=== PATIENT | female | born 1980 | race Caucasian/White ===

== ENCOUNTER 2018-12-03 13:07 | Emergency (ER) | payer BC ==
[2018-12-03] MEDS ORDERED: Diphtheria,Pertussis(Acell),Tetanus Vaccine 0.5 ML Syringe IM ONE (13:50)
--- NOTE | 2018-12-03 13:56 | EDM.PDOC ---
ED HPI GENERAL MEDICAL PROBLEM - General Chief Complaint: Laceration Stated Complaint: CUT TIP OF FINGER Time Seen by Provider: 12/03/18 13:40 Source of Information: Reports: Patient History Limitations: Reports: No Limitations - History of Present Illness INITIAL COMMENTS - FREE TEXT/NARRATIVE: Patient comes into the emergency department with complaints of laceration to her pinky finger on the left hand. Patient states she was at home trying to open a biscuit container for her animal and ended up cutting the tip of her pinky finger. She noticed a laceration immediately and she put manual pressure on the injury. She was able to stop the bleed. She presented to the emergency department immediately. Patient is not familiar with her last Tdap was; but does believe it has been greater than 5 years ago. Patient denies any numbness or tingling, decrease range of motion, or CMS concerns. Bleeding is controlled prior to arrival with manual pressure. Onset: Sudden Location: Reports: Lower Extremity, Right Quality: Reports: Throbbing Severity: Mild Improves with: Reports: Immobilization Worsens with: Reports: Movement Context: Reports: Other Associated Symptoms: Reports: No Other Symptoms - Related Data Allergies Allergy/AdvReac Type Severity Reaction Status Date / Time codeine Allergy Vomiting Verified 12/03/18 13:36 sulfamethoxazole Allergy Rash Verified 12/03/18 13:36 [From Bactrim] trimethoprim [From Bactrim] Allergy Rash Verified 12/03/18 13:36 Home Meds: Home Meds . [No Known Home Meds] 12/03/18 [History] ED ROS GENERAL - Review of Systems Review Of Systems: ROS reveals no pertinent complaints other than HPI. Constitutional: Reports: No Symptoms HEENT: Reports: No Symptoms Respiratory: Reports: No Symptoms Cardiovascular: Reports: No Symptoms GI/Abdominal: Reports: No Symptoms Skin: Reports: No Symptoms Neurological: Reports: No Symptoms ED EXAM, SKIN/RASH Exam: See Below Exam Limited By: No Limitations General Appearance: Alert, WD/WN, No Apparent Distress Respiratory/Chest: No Respiratory Distress, Lungs Clear Cardiovascular: Normal Peripheral Pulses, Regular Rate, Rhythm Extremities: Normal Inspection, Normal Range of Motion, Non-Tender, No Pedal Edema, Normal Capillary Refill Neurological: Alert, Oriented Psychiatric: Normal Affect, Normal Mood Skin: Warm, Dry, Intact Location, Skin: Upper Extremity, Left Characteristics: Other (laceration ) Associated features: Tenderness ED SKIN PROCEDURES - Laceration/Wound Repair Left Distal Digit - 5th (Baby) Lac/Wound length In cm: 2.5 Appearance: Irregular, Clean Distal NVT: Neuro & Vascular Intact, No Tendon Injury Anesthetic Type: Local Local Anesthesia - Lidocaine (Xylocaine): 1% Plain Local Anesthetic Volume: 3cc Skin Prep: Isopropyl Alcohol (Alcohol), Saline, Sterile Drape Exploration/Debridement/Repair: Explored to Base Closed with: Sutures Suture Size: 4-0 # of Sutures: 5 Sterile Dressing Applied: Nurse Tetanus Status Addressed: Yes Complications: No Course - Orders/Labs/Meds Orders: Active Orders 24 hr Category Date Time Status Vaccines to be Administered [RC] PER UNIT ROUTINE Care 12/03/18 13:50 Ordered Diphth,Pertuss(Acell),Tet Vac [Adacel] Med 12/03/18 13:50 Once 0.5 ml IM .ONCE ONE Meds: Medications Discontinued Medications Generic Name Dose Route Start Last Admin Trade Name Freq PRN Reason Stop Dose Admin Lidocaine HCl 5 ml 12/03/18 13:37 Xylocaine-Mpf 1% INJECT 12/03/18 13:38 ONETIME ONE Departure - Departure Time of Disposition: 14:15 Disposition: Home, Self-Care 01 Condition: Good Clinical Impression: Laceration - Discharge Information *PRESCRIPTION DRUG MONITORING PROGRAM REVIEWED*: Not Applicable *COPY OF PRESCRIPTION DRUG MONITORING REPORT IN PATIENT MAXX: Not Applicable Instructions: Laceration Care, Adult, [id number] Forms: ED Department Discharge, ED Return to Work/School Form Additional Instructions: 1. keep hand covered and dry at all times 2. If working with soiled items please where gloves 3. Follow up in 10 days with her primary care provider to have sutures removed 4. Can use triple antibiotic cream or bacitracin over the wound to help with healing 5. If any significant swelling, redness, or drainage appears please follow up with primary care provider immediately 6. Can take [id number] ibuprofen or Tylenol as needed for pain and discomfort 7. Tdap Vaccine was updated today 8. Call with any questions or concerns - Problem List Review Problem List Initiated/Reviewed/Updated: Yes - My Orders Last 24 Hours: My Active Orders 12/03/18 13:50 Vaccines to be Administered [RC] PER UNIT ROUTINE Diphth,Pertuss(Acell),Tet Vac [Adacel] 0.5 ml IM .ONCE ONE - Assessment/Plan Last 24 Hours: My Active Orders 12/03/18 13:50 Vaccines to be Administered [RC] PER UNIT ROUTINE Diphth,Pertuss(Acell),Tet Vac [Adacel] 0.5 ml IM .ONCE ONE Assessment:: 1. laceration Plan: 1. laceration repair of left pinky distal finger 2.5cm length 2. Tdap updated 3. Education provided regarding wound care, activity, diet, and follow up care 4. Wound cleaned and dressing applied 5. All questions and concerns addressed prior to discharge.
== END 2018-12-03 14:30 | disposition home or self-care (01) ==
LOC: VM.ED 13:07
DX: S61.217A Laceration without foreign body of left little finger without damage to nail, initial encounter (principal); Z23 Encounter for immunization; Z88.2 Allergy status to sulfonamides; Z88.5 Allergy status to narcotic agent; W26.8XXA Contact with other sharp object(s), not elsewhere classified, initial encounter
CPT/HCPCS: 12001; 90471; 90715; 99283; J2001